=== PATIENT | male | born 1980 | race Caucasian/White ===

== ENCOUNTER 2017-03-09 23:46 | Emergency (ER) | payer BC ==
[~2017-03-09] VITALS: Ht 182.9 cm; Wt 84.8 kg
[2017-03-09 23:48] VITALS: BP 157/92
[2017-03-10] MEDS ORDERED: LIDOCAINE 1%, 20ML ONE (00:18)
[2017-03-10] MEDS ORDERED: DIPH,PERTUSS(ACELL),TET VAC/PF 0.5 ML IM-VACC ONE ×2 (00:18→00:30)
[2017-03-10] MEDS ORDERED: L.E.T SOLUTION TP ONE ×2 (00:18→00:30)
[2017-03-10] MEDS ORDERED: LIDOCAINE 1%, 20ML INFIL ONE (00:30)
== END 2017-03-10 02:51 | disposition home or self-care (01) ==
LOC: ED 03-10 02:45
DX: S61.012A Laceration without foreign body of left thumb without damage to nail, initial encounter (principal); W26.0XXA Contact with knife, initial encounter; Y93.89 Activity, other specified; Y99.8 Other external cause status; Y92.009 Unspecified place in unspecified non-institutional (private) residence as the place of occurrence of the external cause
CPT/HCPCS: 12001; 90471; 90715; 99283; J3490